=== PATIENT | male | born 1930 | race Caucasian/White ===

== ENCOUNTER 2018-10-10 15:04 | Outpatient (CLI) | payer MEDICARE, OTHER ==
[2018-10-10 15:39] LABS: INR 1.6 (0.8-1.2); PT - PROTHROMBIN TIME 18.3 secs (9.9-12.6)
== END 2018-10-10 15:05 | disposition home or self-care (01) ==
LOC: LAB 15:04
PROVIDERS: ATTEND Family Medicine
DX: I48.2 Chronic atrial fibrillation (principal); Z79.01 Long term (current) use of anticoagulants
CPT/HCPCS: 36415; 85610